=== PATIENT | male | born 1965 | race Caucasian/White ===

== ENCOUNTER 2016-08-05 22:36 | Observation (INO) | payer MEDICARE ==
[2016-08-06] MEDS ORDERED: ASPIRIN 81 MG TABLET, CHEWABLE PO ONE (00:19)
--- NOTE | 2016-08-06 00:27 | ER Document Report ---
ED General - General Chief Complaint: Chest Pain Stated Complaint: CHEST PAIN Mode of Arrival: Ambulatory Information source: Patient Notes: This is a 50-year-old male who presents for evaluation of chest pain. He reports intermittent episodes of chest pain and pressure for the past 6 weeks. These occur 1-2 times per week. Tonight he had an episode of chest pressure that began at about 8:00 as he was lying down. He states that he had associated diaphoresis, nausea, shortness of breath. He also reported numbness and tingling radiating down the left arm. Upon arrival to the ER he states he feels better and has no ongoing chest pain. He reports a history of hypertension but states that he stopped taking his antihypertensive several months ago secondary to "not feeling well". He continues to smoke about a pack a day. TRAVEL OUTSIDE OF THE [place] IN LAST 30 DAYS: No - Related Data Allergies/Adverse Reactions: No Known Allergies Allergy (Verified 10/09/15 18:08) Past Medical History - General Information source: Patient - Social History Smoking Status: Current Every Day Smoker Frequency of alcohol use: 3-6 beers daily Drug Abuse: None Family History: CAD - Father of [place] age 48 Patient has suicidal ideation: No Patient has homicidal ideation: No - Past Medical History Cardiac Medical History: Reports: Hx Hypertension Renal/ Medical History: Denies: Hx Peritoneal Dialysis Past Surgical History: Reports: Hx Orthopedic Surgery - Immunizations Hx Diphtheria, Pertussis, Tetanus Vaccination: Yes Review of Systems - Review of Systems Constitutional: Malaise. denies: Chills, Fever, Recent illness EENT: No symptoms reported Cardiovascular: See HPI Respiratory: See HPI. denies: Cough, Hurts to breathe Gastrointestinal: No symptoms reported, Nausea. denies: Abdominal pain Genitourinary: No symptoms reported Musculoskeletal: No symptoms reported Skin: No symptoms reported Hematologic/Lymphatic: No symptoms reported Neurological/Psychological: No symptoms reported Physical Exam - Vital signs Vitals: Temp Pulse Resp BP Pulse Ox 97.6 F 101 H 20 147/86 H 99 08/05/16 22:38 08/05/16 22:38 08/05/16 22:38 08/05/16 22:38 08/05/16 22:38 - Notes Notes: PHYSICAL EXAMINATION: GENERAL: Well-appearing, well-nourished and in no acute distress. HEAD: Atraumatic, normocephalic. EYES: Pupils equal round and reactive to light, extraocular movements intact, sclera anicteric, conjunctiva are normal. ENT: nares patent, oropharynx clear without exudates. Moist mucous membranes. NECK: Normal range of motion, supple without lymphadenopathy LUNGS: Breath sounds clear to auscultation bilaterally and equal. No wheezes rales or rhonchi. HEART: Regular rate and rhythm without murmurs ABDOMEN: Soft, normoactive bowel sounds. Mild RUQ TTP. No guarding, no rebound. No masses appreciated. EXTREMITIES: Normal range of motion, no pitting or edema. No cyanosis. NEUROLOGICAL: Cranial nerves grossly intact. Normal speech. No gross focal motor or sensory deficits appreciated. PSYCH: Normal mood, normal affect. SKIN: Warm, Dry, normal turgor, no rashes or lesions noted. Course - Vital Signs Vital signs: Temp Pulse Resp BP Pulse Ox 97.6 F 101 H 20 141/89 H 96 08/05/16 22:38 08/05/16 22:38 08/06/16 02:02 08/06/16 02:02 08/06/16 02:02 - Laboratory Result Diagrams: 08/06/16 00:20 08/06/16 00:20 Laboratory results interpreted by me: 08/06/16 08/06/16 00:20 00:20 MCH 34.1 H Carbon Dioxide 21 L Glucose 114 H Creatine Kinase 200 H - Diagnostic Test Radiology reviewed: Reports reviewed - CXR: no acute cardiopulmonary process - EKG Interpretation by Me Additional EKG results interpreted by me: 08/06/16 01:14 EKG at 2241 demonstrates normal sinus rhythm with a rate of 98. Normal axis. QRS and QT intervals are within normal limits. There is no ST segment elevation or depression. Discharge - Discharge Clinical Impression: Tobacco abuse Chest pain Qualifiers: Chest pain type: unspecified Qualified Code(s): R07.9 - Chest pain, unspecified Hypertension Qualifiers: Hypertension type: essential hypertension Qualified Code(s): I10 - Essential ( primary) hypertension Alcoholic intoxication Qualifiers: Complication of substance-induced condition: uncomplicated Qualified Code(s): F10.120 - Alcohol abuse with intoxication, uncomplicated Condition: Stable Disposition: ADMITTED OBSERVATION Admitting Provider: Hospitalist - Dr. Faust Unit Admitted: Telemetry
[2016-08-06] MEDS ORDERED: ACETAMINOPHEN 325 MG TABLET PO ONE (00:30)
[2016-08-06 00:32] LABS: ABSOLUTE BASOPHILS # (AUTO) 0.1 10^3/uL (0.0-0.2); ABSOLUTE EOSINOPHILS # (AUTO) 0.1 10^3/uL (0.0-0.6); ABSOLUTE LYMPHOCYTES (AUTO) 2.6 10^3/uL (0.5-4.7); ABSOLUTE MONOCYTES (AUTO) 0.4 10^3/uL (0.1-1.4); ABSOLUTE NEUT (AUTO) 2.9 10^3/uL (1.7-8.2); BASOPHILS % (AUTO) 1.3 % (0-2); EOSINOPHILS % (AUTO) 1.6 % (0-6); HEMATOCRIT 41.9 % (37.9-51.0); HGB HCT DIFFERENCE 3.1; LYMPHOCYTES % (AUTO) 43.5 % (13-45); MEAN CORPUSCULAR HEMOGLOBIN 34.1 pg (27.0-33.4); MEAN CORPUSCULAR HGB CONC 35.7 g/dL (32.0-36.0); MEAN CORPUSCULAR VOLUME 95 fl (80-97); MONOCYTES % (AUTO) 6.5 % (3-13); RED BLOOD COUNT 4.39 10^6/uL (4.35-5.55); RED CELL DISTRIBUTION WIDTH 12.8 % (11.5-14.0); SEGMENTED NEUTROPHILS % (AUTO) 47.1 % (42-78); WHITE BLOOD COUNT 6.1 10^3/uL (4.0-10.5)
[2016-08-06 00:46] LABS: ALANINE AMINOTRANSFERASE 68 U/L (21-72); ALBUMIN 4.5 g/dL (3.5-5.0); ALCOHOL 215 mg/dL (NONE DETECTED); ALKALINE PHOSPHATASE 61 U/L (38-126); ANION GAP 16 (5-19); ASPARTATE AMINO TRANSFERASE 54 U/L (17-59); BILIRUBIN,DIRECT 0.2 mg/dL (0.0-0.4); BILIRUBIN,TOTAL 0.3 mg/dL (0.2-1.3); BLOOD UREA NITROGEN 9 mg/dL (7-20); CALCIUM 9.3 mg/dL (8.4-10.2); CARBON DIOXIDE 21 mmol/L (22-30); CHLORIDE 103 mmol/L (98-107); CREATINE KINASE 200 U/L (55-170); CREATININE RESULT 0.84 mg/dL (0.52-1.25); GLUCOSE 114 mg/dL (75-110); TOTAL PROTEIN 7.4 g/dL (6.3-8.2)
[2016-08-06 01:05] LABS: CREATINE KINASE MB 2.19 ng/mL (<4.55); TROPONIN I < 0.012 ng/mL
[2016-08-06] MEDS ORDERED: CYCLOBENZAPRINE HCL 10 MG TABLET PO ONE (02:02)
[2016-08-06] MEDS ORDERED: ACETAMINOPHEN 325 MG TABLET PO PRN (03:55)
[2016-08-06] MEDS ORDERED: NICOTINE 21 MG/24 HR PATCH.TD24 TD PRN (03:59)
[2016-08-06] MEDS ORDERED: THIAMINE HCL 100 MG TABLET PO SCH (04:00)
[2016-08-06] MEDS ORDERED: MAG HYDROX/AL HYDROX/SIMETH SUSP 30 ML UDCUP PO PRN (04:00)
[2016-08-06] MEDS ORDERED: IPRATROPIUM/ALBUTEROL 0.5-2.5 MG/3 ML AMPUL NEB PRN (04:24)
[2016-08-06] MEDS ORDERED: ENALAPRILAT DIHYDRATE INJ/PF 1.25 MG/1 ML SDV IV PRN (04:31)
--- NOTE | 2016-08-06 04:33 | PDOC H&P ---
History of Present Illness Admission Date/PCP: 08/06/16 03:15 No PCP Patient complains of: Chest pain History of Present Illness: CIRA SAUL JR is a 50 year old male with underlying hypertension, but not having taken his medication for several months, family history of early coronary artery disease in the person of his father, who of an DC at 48, pack of cigarettes per day, 3-6 beers daily, chronic bilateral hip pain, having undergone bilateral hip replacement, mild reflux, and chronic anxiety, who presents to the emergency room for evaluation of above complaint. Patient has been discussed with emergency room physician who evaluated the patient. He describes a 6 week history of intermittent episodes of substernal chest pain and pressure, 1-2 times per week. Latest episode occurred approximately 8 PM on the third as he was lying down. Associated mild sweating, nausea, shortness of breath, along with mild numbness and tingling of his left upper extremity. Nothing in particular made the pain worse; possible slight improvement with a cough. Episodes typically last about 5-10 minutes, and resolve on their own. Currently resting quietly, without chest pain. No previous myocardial infarction. No history of congestive heart failure. No history of pulmonary embolus or DVT. No recent long trip with prolonged inactivity, or unusual lower extremity swelling or tenderness. Negative nuclear stress study approximate 3 years ago prior to hip surgery. Hospitalized on our service basically overnight in early October of last year with discharge diagnoses including chest pain, likely secondary to NSAID gastritis. At that time, he was taking 6-8 Goody powder packets a day. Has cut back to 2 a day, but is taking 4 [id number] strength Motrin twice a day, again primarily for his chronic hip pain. No known history of peptic ulcer disease. . Laboratory results are listed in [facility] and are reviewed. X-ray summary results are listed below, with full report(s) reviewed. . EKG reviewed. Social history/personal habits: . Has children. On disability due to chronic hip pain. Personal habits as noted above. Denies illicit drug use. Allergies/adverse reactions NKDA. Home medications Home medications initially autopopulated into [facility] may not accurately reflect patient's true medications, dosages, and/or frequencies. 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 Unfortunately, patient uncertain of all his medications/dosages/frequencies. REVIEW OF SYSTEMS: Constitutional: No fever or chills. Eyes: Wears glasses. ENT: No swallowing problems or complaints. No hearing problems or complaints. Pulmonary: See history and present illness. Cardiovascular: See history and present illness. Gastrointestinal: See history and present illness. Skin: No current complaints, including rashes. Hematologic: Easy bruising. Neurologic: No current complaints, including numbness or tingling. Musculoskeletal: See history and present illness. Psychiatric: Anxiety Endocrine: No current complaints, including polyuria. Genitourinary: No current complaints, including dysuria. PHYSICAL EXAMINATION: 5 feet 10 inches tall. 83.9 kg. BMI 26.5 kg/m. Blood pressure 133/90. Pulse 91 and regular. 97% saturation on room air. Respirations are 20 and unlabored. Temperature 97.9. Slightly overweight otherwise well-nourished well-developed male appearing approximately his stated age. Pleasant awake alert and cooperative. No obvious distress other than perhaps mildly anxious. No agitation. Skin is warm and dry. No grossly obvious evidence of rash in areas of skin examined. No subcutaneous nodules palpated. ENT: Hearing grossly normal to normal conversation. Tongue midline on protrusion pink and slightly tacky. Eyes: No scleral icterus. Pupils equal and reactive to light at 4 mm. [place] conjunctivae. Neck is supple and nontender to gentle active range of motion and palpation. Midline trachea. No palpable thyroid nodule mass enlargement or tenderness. Lymphatic: No palpable cervical or clavicular nodes. Neck and lymphatic exams limited by patient body habitus. Psychiatric: Reasonable insight into acute and chronic medical issues. Oriented to time location and why here. Lungs: Auscultation reveals equal breath sounds bilaterally. No use of accessory respiratory muscles. Mild brief early inspiratory and expiratory wheezing bilaterally; patient states he rarely wheezes. Cardiovascular: Heart regular rate and rhythm, without gallop or rub. Faint, barely detectable early systolic ejection murmur, heard at cardiac apex. No carotid or abdominal aortic bruits. No ankle edema. Abdomen: soft, , somewhat distended nontender with positive bowel sounds. Unable to adequately evaluate abdomen for masses or organomegaly due to distention. Compression of neither his upper abdomen nor sternum reproduces his chest discomfort. Extremities: Feet are warm and dry. No calf tenderness to compression. No grossly obvious visual evidence of calf swelling. Gentle manipulation of lower extremities fails to reveal any obvious evidence of injury or instability to knees hips or ankles. Neurologic: Moves upper extremities grossly normally. Patellar reflexes absent. Dorsiflexion and plantarflexion of feet 5 / 5 and symmetric. Past Medical History Cardiac Medical History: Reports: Hypertension Denies: Congestive Heart Failure, Coronary Artery Disease, DVT, Hyperlipidema , Pulmonary Embolism Pulmonary Medical History: Denies: Asthma, Chronic Obstructive Pulmonary Disease (COPD), Sleep Apnea EENT Medical History: Reports: Eyes - Glasses Denies: Ears, Throat Neurological Medical History: Denies: Hemorrhagic CVA, Ischemic CVA, Seizures Endocrine Medical History: Denies: Diabetes Mellitus Type 1, Diabetes Mellitus Type 2, Hyperthyroidism, Hypothyroidism Renal/ Medical History: Reports: None GI Medical History: Reports: Gastroesophageal Reflux Disease Denies: Cirrhosis, Hepatitis, Peptic Ulcer Disease Musculoskeltal Medical History: Reports: Arthritis Skin Medical History: Reports: None Psychiatric Medical History: Reports: Alcohol Dependency, General Anxiety Disorder, Tobacco Dependency Denies: Depression, Substance Abuse Hematology: Reports: Other - Easy bruising Infectious Medical History: Reports: Methicillin-Resistant Staph Aureus - Questionable history of same. Denies: Clostridium Difficile, Hepatitis B, Hepatitis C Past Surgical History Past Surgical History: Reports: Orthopedic Surgery - Bilateral hip surgery. Social History Information Source: Patient, Emergency Med Personnel, [facility], [facility] Records Smoking Status: Current Every Day Smoker Frequency of Alcohol Use: Heavy Drugs: None - Advance Directive Resuscitation Status: Full Code Surrogate healthcare decision maker:: Mother Family History Family History: CAD - Father of [place] age 48 Parental Family History Reviewed: Yes - mother with COPD. Father of an DC at 48. Children Family History Reviewed: Yes - Healthy Sibling(s) Family History Reviewed.: Yes - Sister with history of melanoma Medication/Allergy Home Medications: Acetaminophen [Tylenol 325 mg Tablet] 650 mg PO Q4HP PRN tablet 08/06/16 Lorazepam [Ativan 1 mg Tablet] 1 mg PO Q4 PRN #30 tab 08/06/16 Omeprazole 40 mg PO DAILY #30 capsule. 08/06/16 Sertraline HCl [Zoloft 50 mg Tablet] 50 mg PO DAILY #30 tablet 08/06/16 Tramadol HCl 50 mg PO Q8HP PRN #30 tablet 08/06/16 Allergies/Adverse Reactions: No Known Allergies Allergy (Verified 08/06/16 03:34) Physical Exam Vital Signs: Temp Pulse Resp BP Pulse Ox 97.9 F 101 H 17 133/90 H 98 08/06/16 03:30 08/05/16 22:38 08/06/16 03:03 08/06/16 03:03 08/06/16 03:03 Results Impressions: Chest X-Ray 08/06/16 00:19 IMPRESSION: NO ACUTE RADIOGRAPHIC FINDING IN THE CHEST. Assessment & Plan - Diagnosis (1) Alcohol intoxication Qualifiers: Complication of substance-induced condition: uncomplicated Qualified Code(s): F10.120 - Alcohol abuse with intoxication, uncomplicated Is this a current diagnosis for this admission?: YesPlan: Daily multivitamin, folic acid, and thiamine. Observe closely for evidence of withdrawal; none at present. (2) Chest pain Qualifiers: Chest pain type: unspecified Qualified Code(s): R07.9 - Chest pain, unspecified Is this a current diagnosis for this admission?: YesPlan: Patient will be placed in observation bed under chest pain protocol. Patient understands to notify staff should chest pain recur. Serial troponin's . Repeat EKG. lipid panel. I have strongly urged patient to be careful getting out of bed, to avoid a fall with injury. Knee high SCDs for DVT prophylaxis. Along with subcutaneous Lovenox . Impression and plans were discussed with patient, who concurs. Time spent in evaluation and management of patient: 64 minutes. (3) Wheezing Is this a current diagnosis for this admission?: YesPlan: When necessary DuoNeb. (4) Family history of early CAD Is this a current diagnosis for this admission?: Yes (5) Hip pain, bilateral Is this a current diagnosis for this admission?: YesPlan: Pain control. (6) NSAID long-term use Is this a current diagnosis for this admission?: YesPlan: Prevacid. (7) Hypertension Qualifiers: Hypertension type: essential hypertension Qualified Code(s): I10 - Essential (primary) hypertension Is this a current diagnosis for this admission?: YesPlan: When necessary enalaprilat. (8) Noncompliance Is this a current diagnosis for this admission?: Yes
[2016-08-06] MEDS: OXYCODONE HCL IR 5 MG TABLET PO PRN ×2 (04:42→10:03)
[2016-08-06 04:49] LABS: CHOLESTEROL 211.16 mg/dL (0-200); Direct HDL 77 mg/dL (>40); TRIGLYCERIDES 172 mg/dL (<150)
[2016-08-06 05:00] LABS: DIRECT LDL 100 mg/dL (<100)
[2016-08-06 05:01] LABS: VLDL CHOLESTEROL 34.4 mg/dL (10-31)
[2016-08-06] MEDS ORDERED: LANSOPRAZOLE 30 MG TAB.RAP.DR PO SCH (06:00)
[2016-08-06 07:48] LABS: URINE BARBITURATES SCREEN NEGATIVE; URINE METHADONE SCREEN NEGATIVE; URINE OPIATES LOW NEGATIVE; URINE PHENCYCLIDINE SCREEN NEGATIVE
[2016-08-06] MEDS ORDERED: ENOXAPARIN SODIUM INJ 40 MG/0.4 ML DISP.SYRIN SUBCUT SCH (10:00)
[2016-08-06] MEDS ORDERED: ASPIRIN 81 MG TABLET, ENT COATED PO SCH (10:00)
[2016-08-06] MEDS ORDERED: MULTIVITAMIN TABLET PO SCH (10:00)
[2016-08-06] MEDS ORDERED: FOLIC ACID 1 MG TABLET PO SCH (10:00)
[2016-08-06 13:08] VITALS: BP 122/75
--- NOTE | 2016-08-06 15:30 | PDOC DISCHARGE SUMMARY ---
General - Admit/Disc Date/PCP Admission Date/Primary Care Provider: 08/06/16 04:00 Discharge Date: 08/06/16 - Discharge Diagnosis (1) Chest pain Is this a current diagnosis for this admission?: Yes (2) GERD (gastroesophageal reflux disease) Is this a current diagnosis for this admission?: Yes (3) Anxiety Is this a current diagnosis for this admission?: Yes (4) NSAID long-term use Is this a current diagnosis for this admission?: Yes (5) Alcohol dependency Is this a current diagnosis for this admission?: Yes (6) Tobacco abuse Is this a current diagnosis for this admission?: Yes - Additional Information Resuscitation Status: Full Code Discharge Diet: Regular Discharge Activity: Activity As Tolerated Home Medications: Acetaminophen [Tylenol 325 mg Tablet] 650 mg PO Q4HP PRN tablet 08/06/16 Lorazepam [Ativan 1 mg Tablet] 1 mg PO Q4 PRN #30 tab 08/06/16 Omeprazole 40 mg PO DAILY #30 capsule. 08/06/16 Sertraline HCl [Zoloft 50 mg Tablet] 50 mg PO DAILY #30 tablet 08/06/16 Tramadol HCl 50 mg PO Q8HP PRN #30 tablet 08/06/16 History of Present Illness Patient complains of: chest pain History of Present Illness: CIRA SAUL JR is a 50 year old male with underlying hypertension, but not having taken his medication for several months, family history of early coronary artery disease in the person of his father, who of an [place] at 48, pack of cigarettes per day, 3-6 beers daily, chronic bilateral hip pain, having undergone bilateral hip replacement, mild reflux, and chronic anxiety, who presents to the emergency room for evaluation of above complaint. Hospital Course Hospital Course: Serial cardiac enzymes negative. Stress test negative 10/10/2015. Likely esophagitis related to chronic NSAID use and chronic alcohol abuse. Patient's advised to discontinue alcohol and NSAIDs. I will prescribe Prilosec. I will refer him to Dr. Julian of gastroenterology. Patient also has chronic anxiety for which I prescribed Zoloft and when necessary Ativan. He is advised to discontinue alcohol use. Patient has chronic bilateral hip pain which has been taking chronic NSAIDs. I will advise him to discontinue NSAID secondary to gastrointestinal issues. I will prescribe when necessary tramadol. Physical Exam Vital Signs: Temp Pulse Resp BP Pulse Ox 98.9 F 88 16 122/75 98 08/06/16 13:06 08/06/16 13:06 08/06/16 13:06 08/06/16 13:06 08/06/16 13:06 Intake & Output 08/05/16 08/06/16 08/07/16 06:59 06:59 06:59 Intake Total 200 Balance 200 Weight 86.6 kg GENERAL: No acute distress HEENT: Conjunctiva clear, nonicteric, moist mucous membranes, no JVD, midline trachea RESPIRATORY: Clear to auscultation bilaterally, no wheezes, no rhonchi CARDIAC: Regular rate and rhythm, no murmurs/gallops/rubs ABDOMEN: Soft, nondistended, nontender, positive bowel sounds, no rebound, no guarding EXTREMETIES: No edema, cyanosis, clubbing NEUROLOGIC: Alert, oriented to person/place/time, CN's grossly intact, no focal deficits SKIN: No rash, wounds PSYCH: Normal mood, normal affect Results Laboratory Results: 08/06/16 04:20 Triglycerides 172 H Cholesterol 211.16 H LDL Cholesterol Direct 100 VLDL Cholesterol 34.4 H HDL Cholesterol 77 08/06/16 08/06/16 04:20 09:55 Troponin I < 0.012 < 0.012 Impressions: Chest X-Ray 08/06/16 00:19 IMPRESSION: NO ACUTE RADIOGRAPHIC FINDING IN THE CHEST. Qualifiers PATEINT BEING DISCHARGED WITH ANY OF THE FOLLOWING DIAGNOSIS?: No Plan Time Spent: Less than 30 Minutes
--- NOTE | 2016-08-07 08:12 | EKG REPORT ---
SEVERITY:- NORMAL ECG - SINUS RHYTHM : Confirmed by: David Allen MD 07-Aug-2016 08:11:04
== END 2016-08-06 13:25 | disposition home or self-care (01) ==
LOC: ER 22:36 → EH 08-06 03:15 → UNDOADMOB 08-06 03:15 → EH 08-06 04:00 → 5 08-06 04:27 → EH 08-06 04:27
PROVIDERS: ADMIT Family Medicine; ATTEND Family Medicine
DX: R07.89 Other chest pain (principal); K21.9 Gastro-esophageal reflux disease without esophagitis; F41.9 Anxiety disorder, unspecified; Z79.1 Long term (current) use of non-steroidal anti-inflammatories (NSAID); F10.229 Alcohol dependence with intoxication, unspecified; Y90.7 Blood alcohol level of 200-239 mg/100 ml; R06.2 Wheezing; M25.552 Pain in left hip; M25.551 Pain in right hip; I10 Essential (primary) hypertension; M19.90 Unspecified osteoarthritis, unspecified site; Z91.14 Patient's other noncompliance with medication regimen; R20.0 Anesthesia of skin; R20.2 Paresthesia of skin; R53.81 Other malaise; Z96.643 Presence of artificial hip joint, bilateral; Z82.49 Family history of ischemic heart disease and other diseases of the circulatory system; Z79.899 Other long term (current) drug therapy; F17.210 Nicotine dependence, cigarettes, uncomplicated; Z82.5 Family history of asthma and other chronic lower respiratory diseases
CPT/HCPCS: 99285; 36415; 82553; 80307 ×2; 82550; 83690; 85025; 80053; 84484; 80061; 71010; 93005; 93010; 94640; G0378; A9270 ×10; J1650; J3490; J7620

== ENCOUNTER 2016-12-24 14:23 | Emergency (ER) | payer MEDICARE | END 2016-12-24 14:45 | disposition left against medical advice (07) | LOC: ER 14:23 | DX: Z53.21 Procedure and treatment not carried out due to patient leaving prior to being seen by health care provider (principal) ==